=== PATIENT | male | born 1960 | race Caucasian/White ===

== ENCOUNTER → 2019-05-07 09:17 | Outpatient (CLI) | payer OTHER, SELFPAY ==
--- NOTE | 2019-05-07 10:01 | DI.CT.S_ITS ---
PROCEDURE: CT ANGIO HEAD AND NECK INDICATIONS: aneurysm of carotid artery TECHNIQUE: Pre-contrast 4.5 mm thick sections acquired from the foramen magnum to the vertex. After the administration of intravenous contrast, 1 mm thick sections acquired from the aortic arch through the [place]. Post-contrast 4.5 mm thick sections then re-acquired from the foramen magnum to the vertex. 3-dimensional gpwbowp-[id number]-gkuisjzzgy (MIP) and/or volume rendering reformats were acquired of the central intracranial vasculature and neck separately. COMPARISON: Outside Facility, RG, CT NECK ANGIO, 08/01/2017, 13:07. FINDINGS: Image quality: Excellent. BRAIN: CSF spaces: Ventricles are normal in size and shape. Basal cisterns are patent. No extra-axial fluid collections. Brain: No midline shift. No intracranial bleeds or masses. Love-white matter interface appears intact. Small, chronic left parietal-occipital infarct is stable compared to prior CT scan. Skull and face: Postsurgical changes compatible with left frontal-temporal craniotomy for left ICA-MCA bypass is stable compared to prior examination. The facial bones appear intact, without suspicious lesions. Orbits appear normal. Sinuses: Sinuses and mastoids are clear. HEAD CT ANGIOGRAPHY: Anterior circulation: Postsurgical changes compatible with left ICA-MCA bypass noted. Normal contrast opacification of the bypass graft. There is minimal retrograde flow in the supraclinoid and cavernous segments of the left internal carotid artery. Intracranial right internal carotid artery is normal in size and flow. The flow within the paired anterior cerebral arteries is normal and symmetric. The flow within the middle cerebral arteries is normal and symmetric. The anterior communicating artery is seen. No aneurysms are seen. Posterior circulation: Visualized portions of the vertebral arteries demonstrate normal caliber, and join to form a normal appearing basilar artery. Flow within the posterior cerebral arteries is normal and symmetric. Left posterior cerebral artery has a origin. No aneurysms are seen. There is normal contrast opacification of the dural sinuses. NECK CT ANGIOGRAPHY: Carotid system: The great vessels demonstrate a conventional anatomy as they arise from the aortic arch. The origins of the common carotid arteries appear patent. The common carotid arteries demonstrate normal caliber and courses. The bifurcation regions are both widely patent. The internal carotid arteries demonstrate normal calibers and courses. Posterior circulation: The origins of the vertebral arteries both appear widely patent. The more superior extracranial portions of both vertebral arteries also demonstrate normal courses and calibers. They join to form a normal appearing basilar artery. Soft tissues: Visualized neck soft tissues demonstrate no suspicious abnormalities. Bones: No suspicious bony lesions. Visualized cervical spine appears normally aligned. IMPRESSION: 1. Stable examination compared to 08/01/2017. 2. No acute intracranial disease process. 3. Postsurgical changes compatible with left ICA-MCA bypass are stable. There is continued normal contrast opacification of the left ICA-MCA bypass graft. 4. Small, chronic left parietal-occipital infarct is stable compared to prior examination. Any quantitative measurements of stenosis were performed using NASCET criteria. Dictated by: Suze Walker MD, PhD on 05/07/2019 at 13:36 Approved by: Suze Walker MD, PhD on 05/07/2019 at 13:52
== END ==
PROVIDERS: PCP Specialist; Visit Provider Physician Assistant
DX: I72.0 Aneurysm of carotid artery (principal); I77.70 Dissection of unspecified artery; Z98.1 Arthrodesis status
CPT/HCPCS: 70496; 70498; Q9967